=== PATIENT | female | born 1950 | race Caucasian/White ===

== ENCOUNTER 2019-10-06 16:09 | Emergency (ER) | payer MEDICARE, MEDICAID ==
[~2019-10-06] VITALS: Ht 165.1 cm; Wt 59.1 kg
[2019-10-06 16:12] VITALS: BP 118/68
[2019-10-06] MEDS ORDERED: ATOR20TA86 PO (17:11)
[2019-10-06] MEDS ORDERED: TERB250 PO (17:11)
== END 2019-10-06 18:03 | disposition home or self-care (01) ==
LOC: EMS 16:11
DX: R05 Cough (principal); R11.10 Vomiting, unspecified; Z03.818 Encounter for observation for suspected exposure to other biological agents ruled out
CPT/HCPCS: 71045; 99284; U0003

== ENCOUNTER 2020-12-06 00:34 | Emergency (ER) | payer MEDICARE, MEDICAID ==
[~2020-12-06] VITALS: Ht 162.6 cm; Wt 61.4 kg
[~2020-12-06 00:34] MED LIST: ATOR20TA86 PO; TERB250 PO
[2020-12-06 00:38] VITALS: BP 114/93
[2020-12-06] MEDS ORDERED: CefTRIAXone SODIUM 1 GM/VIAL IM ONE (04:30)
[2020-12-06] MEDS ORDERED: AZITHROMYCIN 500 MG TABLET PO ONE (04:30)
[2020-12-06] MEDS ORDERED: LIDOCAINE/PF 1% 2 ML VIAL IM ONE (04:30)
== END 2020-12-06 04:31 | disposition home or self-care (01) ==
LOC: EMS 00:34
DX: Z47.2 Encounter for removal of internal fixation device (principal); Z88.8 Allergy status to other drugs, medicaments and biological substances
CPT/HCPCS: 99281; Z7502